=== PATIENT | female | born 1995 | race Caucasian/White ===

== ENCOUNTER 2021-04-21 05:48 | Emergency (ER) | payer SELFPAY ==
[~2021-04-21] VITALS: Ht 154.9 cm; Wt 40.8 kg
[2021-04-21 06:06] VITALS: BP_SYST 121
--- NOTE | 2021-04-21 06:16 | NUR ---
Patient ambulatory to bed 6 for evaluation
--- NOTE | 2021-04-21 06:17 | NUR ---
PAtient caox4 ambulatory, in restroom providing urine sample at this time.
--- NOTE | 2021-04-21 06:32 | NUR ---
ER at bedside examining patient.
[2021-04-21] MEDS ORDERED: KETOROLAC TROMETHAMINE 15 MG VIAL IVP ONE (06:45)
[2021-04-21] MEDS ORDERED: ONDANSETRON HCL 4 MG/2 ML VIAL IVP ONE (06:45)
--- NOTE | 2021-04-21 07:15 | NUR ---
MICHAEL TO ASSUME CARE, PT CALM, ALERT, RESP UNLABORED, SKIN WARM AND DRY. COMMUNICATES CLEARLY IN FULL COMPLETE SENTECES, SKIN WARM AD DRY. DENIES CP/SOB
[2021-04-21 07:36] LABS: BASOPHILS # (AUTO) 0.1 K/uL (0.0-0.2); BASOPHILS % (AUTO) 0.5 % (0.0-2.0); EOSINOPHILS # (AUTO) 0.2 K/uL (0.0-0.4); EOSINOPHILS % (AUTO) 1.5 % (0.0-4.0); HEMATOCRIT 40.3 % (36-48); HEMOGLOBIN 13.8 g/dL (12.0-16.0); LYMPHOCYTES # (AUTO) 2.8 K/uL (1.0-5.5); LYMPHOCYTES % (AUTO) 20.7 % (20.5-51.5); MEAN CORPUSCULAR HEMOGLOBIN 29 pg (27-31); MEAN CORPUSCULAR HGB CONC 34 % (32-36); MEAN CORPUSCULAR VOLUME 85 fL (79.0-98.0); MONOCYTES # (AUTO) 0.7 K/uL (0.0-1.0); MONOCYTES % (AUTO) 5.3 % (1.7-9.3); NEUTROPHILS # (AUTO) 9.7 K/uL (1.8-7.7); PLATELET COUNT (AUTO) 302 K/uL (130-430); RED BLOOD CELL COUNT(AUTO) 4.75 MIL/uL (4.2-6.2); WHITE BLOOD COUNT (AUTO) 13.4 K/uL (4.8-10.8)
--- NOTE | 2021-04-21 08:07 | NUR ---
URINE OBTAINED, PREG NEGATIVE
[2021-04-21 08:12] LABS: CALCIUM 9.2 mg/dL (8.4-11.0); CREATININE 0.74 mg/dL (0.55-1.30); POTASSIUM 3.6 mmol/L (3.5-5.1)
[2021-04-21 08:23] LABS: ALBUMIN 4.1 g/dL (3.4-4.8); TOTAL BILIRUBIN 0.8 mg/dL (0.0-1.0)
--- NOTE | 2021-04-21 08:55 | NUR ---
ULTRASOUND IN PROGRESS, PT CALM, ALERT, TOLERATING WELL. NO DISTRESS
--- NOTE | 2021-04-21 09:38 | NUR ---
STATED FEELING BETTER, MD PROVIDED WITH ULTRASOUND REPORT, PT CALM, ALERT, FAMILY AT BEDSIDE
--- NOTE | 2021-04-21 09:47 | NUR ---
DR COLIN AT BEDSIDE
--- NOTE | 2021-04-21 10:30 | NUR ---
CONSENT SIGNED FOR CTA ABD/PELVIS. PT ALERT, CALM, NO DISTRESS
--- NOTE | 2021-04-21 10:48 | NUR ---
BACK FROM CT. NO CHANGE IN CONDITION
[2021-04-21 13:23] VITALS: BP_SYST 125
--- NOTE | 2021-04-21 13:23 | NUR ---
Patient given written and verbal discharge instructions and verbalizes understanding. ER MD discussed with patient the results and treatment provided. Patient in stable condition. ID arm band removed. Patient educated on pain management and to follow up with PMD. Pain Scale 2/10 Opportunity for questions provided and answered.
== END 2021-04-21 13:23 | disposition home or self-care (01) ==
LOC: SED 05:48
DX: R06.02 Shortness of breath (principal); Z88.0 Allergy status to penicillin
CPT/HCPCS: 36415; 74177; 76376; 76700; 80053; 81002; 81025; 83690; 85025; 96374; 96375; 99285; J1885; J2405